=== PATIENT | female | born 1935 | race Caucasian/White ===

== ENCOUNTER 2017-05-20 07:19 | Inpatient (IN) | payer MEDICARE, OTHER ==
--- NOTE | 2017-05-20 08:21 | RAD ---
PORTABLE CHEST ONE VIEW: 05/20/2017 7:59 a.m. HISTORY: Altered mental status. Hypertension. FINDINGS: The heart is enlarged. The lungs are well expanded without confluent areas of consolidation, pneumot horax, domonique pulmonary edema, or pleural effusions. There are degenerative changes in the spine. IMPRESSION: Cardiomegaly. POS: EZE
[2017-05-20 08:48] LABS: #Eosinphils 0.1 thou/uL (0.0-0.7); #Lymphocytes 1.1 thou/uL (1.20-3.40); #Monocytes 0.6 thou/uL (0.11-0.59); %Basophils 0.1 % (0.0-1.0); %Eosinophils 1.3 % (0.0-10.0); %Lymphocytes 11.3 % (21.0-51.0); %Monocytes 6.4 % (0.0-10.0); Hemoglobin 14.8 g/dL (12.0-16.0); Mean Corpuscular HGB CONC 33.8 g/dL (32.0-36.0); Mean Corpuscular Hemoglobin 33.3 pg (27.0-31.0); Mean Corpuscular Volume 98.3 fl (81.0-99.0); Mean Platelet Volume 7.3 fL (7.4-10.4); Platelet Count 294 thou/uL (130-400); RBC Distribution Width 11.9 % (11.5-14.5); Red Blood Cell (RBC) Count 4.46 mill/uL (4.20-5.40); White Blood Cell (WBC) Count 9.9 thou/uL (4.8-10.8)
[2017-05-20 09:10] LABS: Troponin I 0.032 ng/mL (< 0.028)
[2017-05-20 09:13] LABS: CKMB 7.6 ng/mL (0-6.6)
[2017-05-20] MEDS ORDERED: Metoprolol Tartrate 5 MG/5 ML VIAL ONE (09:25)
[2017-05-20] MEDS ORDERED: Metoprolol Tartrate 25 MG TAB ONE (09:25)
[2017-05-20 11:33] LABS: Albumin 3.8 g/dL (3.4-4.8)
[2017-05-20 11:34] LABS: Chloride 95 mmol/L (98-107); Sodium 140 mmol/L (136-145)
[2017-05-20 11:35] LABS: Calcium 8.9 mg/dL (7.8-10.44); Glucose 116 mg/dL (83-110)
[2017-05-20 11:36] LABS: Protein, Total 6.8 g/dL (6.0-8.3)
[2017-05-20 11:37] LABS: Anion Gap 17 mmol/L (10-20); Bilirubin, Total 1.8 mg/dL (0.2-1.2); Carbon Dioxide 31 mmol/L (23-31)
[2017-05-20 11:38] LABS: Alkaline Phosphatase 69 U/L (40-150)
[2017-05-20 11:39] LABS: BUN (Urea Nitrogen) 13 mg/dL (9.8-20.1); Calc. Creatinine Clearance 0 mL/min (70-130); Estimated GFR-MDRD 71; Potassium 2.8 mmol/L (3.5-5.1)
[2017-05-20 11:40] LABS: AST (SGOT) 18 U/L (5-34)
[2017-05-20 11:41] LABS: ALT (SGPT) Less than 7 U/L (8-55); CK (CPK) 493 U/L (29-168); Lipase 6 U/L (8-78)
[2017-05-20] MEDS ORDERED: Diltiazem HCl 125 MG, Admixture Fee 1 EACH in Sodium Chloride 0.9% 100 ML IVPB ONE (11:45)
[2017-05-20] MEDS ORDERED: D5 1/2 NS w/20 mEq KCL 1,000 ML IV SCH (13:15)
[2017-05-20 14:10] LABS: Troponin I 0.021 ng/mL (< 0.028)
[2017-05-20] MEDS ORDERED: Haloperidol Lactate 5 MG/ML VIAL ONE (16:04)
[2017-05-20 17:13] LABS: Troponin I 0.027 ng/mL (< 0.028)
[2017-05-20] MEDS ORDERED: Ondansetron HCl/PF 4 MG/2 ML Vial IVP PRN ×2 (18:35→18:39)
[2017-05-20] MEDS ORDERED: Ondansetron ODT 4 MG TAB SL PRN (18:35)
[2017-05-20] MEDS ORDERED: Ondansetron ODT 4 MG TAB PO PRN (18:39)
[2017-05-20] MEDS ORDERED: Bisacodyl 10 MG SUPP PR PRN (18:39)
[2017-05-20] MEDS ORDERED: Bisacodyl 5 MG TAB PO PRN (18:39)
[2017-05-20 18:43] VITALS: BMI 28.0
[2017-05-20] MEDS ORDERED: Potassium Chloride 20 MEQ TAB PO SCH (19:00)
[2017-05-20] MEDS: Haloperidol Lactate 5 MG/ML VIAL SLOW IVP PRN (21:29)
[2017-05-20] MEDS: Apixaban 5 MG TAB PO SCH (22:08)
[2017-05-20] MEDS: Famotidine 20 MG TAB PO SCH (22:08)
--- NOTE | 2017-05-20 23:38 | CON ---
DATE OF CONSULTATION: 05/20/2017 REASON FOR CONSULTATION: Atrial flutter. HISTORY OF PRESENT ILLNESS: Ms. Galvez is a very pleasant 81-year-old woman. She lives in [facility]. They have noted that she is more confused and disoriented recently, she was brought to the hospital and found to be in atrial flutter. Apparently, recently she was also told that she has atrial fibrillation, but those EKGs are not available to me to know if there is atrial fibrillation o r flutter, but clearly it is atrial flutter on this admission. The patient denies chest pain, pressu re, heaviness or squeezing, otherwise has been doing well. No previous cardiac history otherwise. A lso, the family notes decreased mobility and overall seem to be going downhill to some degree, but st ill functional. The patient does have dementia, but the dementia is also worse in the last few days. The patient is pleasant and cooperative today. MEDICATIONS: The patient is on intravenous diltiazem here, she has been started on apixaban as well as metoprolol. The patient is also on intravenous diltiazem. ALLERGIES: ACETAMINOPHEN, CODEINE, ERYTHROMYCIN and HYDROCODONE. REVIEW OF SYSTEMS: Constitutional: Positive for weakness and fatigue. Vision: No changes. Hearin g: No changes. Pulmonary: No cough or wheezing. Gastrointestinal: No nausea, vomiting, or diarrh ea. Cardiac: No chest pain or pressure. Neurologic: No unilateral weakness or numbness. Psychiat georgina: No unusual depression or anxiety. Hematologic: No unusual bruising. Genitourinary: No burni ng with urination. Musculoskeletal: No unusual joint pains. PHYSICAL EXAMINATION: GENERAL: This is a pleasant elderly woman, in no distress. VITAL SIGNS: Blood pressure 117/56, pulse 80 and it is regular. EYES: Sclerae nonicteric. MOUTH: Mucous membranes moist. NECK: Supple, no lymphadenopathy. LUNGS: Clear, no wheezing, rales or rhonchi. CARDIOVASCULAR: Normal S1, normal S2. There is no murmur, rub or gallop. ABDOMEN: Soft, nontender. EXTREMITIES: No clubbing or cyanosis. There is no edema. LABORATORY DATA AND IMAGING: Potassium was 2.8. Troponin 0.32. EKG reveals atrial flutter. Echoca rdiogram is pending. ASSESSMENT: Recently diagnosed atrial flutter, difficult to control rate as it is usually the case. PLAN: 1. Echocardiogram is pending. 2. Recommend atrial flutter ablation. In anticipation of this, we will hold apixaban after Monday's dose and keep her n.p.o. Monday for hopefully she is going to have an atrial flutter ablati on on Monday.
--- NOTE | 2017-05-21 00:19 | HP ---
PRIMARY CARE PHYSICIAN: Dr. Moulton. CHIEF COMPLAINT: Altered mental status. HISTORY OF PRESENT ILLNESS: This is a 81-year-old white female who lives in assisted living with pro gressive dementia over the last year since her . She is cared for by her 2 daughters, wh o are present in the room. The patient does not have any complaints. The daughters report that over the last year since her , she has had decreased orientation, does not know where she is. She recognizes her 2 daughters, but gets her names confused sometimes, and has had a slowly decreas ing physical ability as well, so that now she needs assistance to go to the restroom, but then over t he last 2-3 weeks, she has had decreasing ability to follow commands, will say that she is lift ing her foot up for them to help her change her clothes and when she has not actually doing it, actin g a little more agitated than normal. She was seen by Dr. Moulton in his office about a couple we eks ago and was noted to have atrial fibrillation at that time, was put on a low dose metoprolol and started on Eliquis. Today, the patient seemed more altered than normal, so she was brought to the em ergency room. In the ER, she was found to be in atrial flutter with rapid ventricular rate in the 14 0s to 150s. This did not improve with IV metoprolol, so she was started to diltiazem drip which brou ght the rate down to 100. The patient was a little bit agitated and pulling out IVs in the emergency room. I gave her one dose of 1 mg of Haldol and that calmed her down without making her sedated. PAST MEDICAL HISTORY: 1. Progressive dementia, unknown type. 2. Hypertension, noted on blood pressures at the assisted living facility over the last couple of mo nths and none before that. 3. Gout. PAST SURGICAL HISTORY: None. SOCIAL HISTORY: The patient is . Lives in assisted living, two daughters are her medical pow er of trade mark attorney. FAMILY HISTORY: None. ALLERGIES: CODEINE. CURRENT MEDICATIONS: 1. Zoloft 25 mg daily. 2. Folic acid 1 mg daily. 3. Imodium 2 mg each morning. 4. Eliquis 5 mg daily. 5. Toprol-XL 25 mg daily. 6. Allopurinol 100 mg daily. REVIEW OF SYSTEMS: Unable to obtain secondary to patient's altered mental status. Per the sister's knowledge, she has only had the altered mental status. No known fevers or infectious symptoms. She has regular diarrhea, which is now controlled with Imodium daily. Nothing else that they are aware o f. The patient denies any complaints at all. PHYSICAL EXAMINATION: VITAL SIGNS: Blood pressure 132/76, pulse 77 on the drip, respirations 18, O2 sat 97% on room air, t emperature 97.5. GENERAL: This is a well-developed, well-nourished, white female who appears pleasant and calm on the bed, but is oriented only to self. HEENT: Pupils equal, round, and reactive to light. Oropharynx clear without lesions, erythema or ex udate. NECK: Supple. No lymphadenopathy. No thyroid nodules. No enlargement. HEART: Irregularly irregular rhythm. Normal rate currently. No murmurs, rubs or gallops. LUNGS: Clear to auscultation bilaterally. No wheezes, crackles or rhonchi. ABDOMEN: Soft, nontender to palpation, normoactive bowel sounds. No hepatosplenomegaly or other mas ses. EXTREMITIES: No clubbing or cyanosis. She does have trace pretibial edema. Daughters report this i s actually better than when they saw Dr. Moulton couple of weeks ago. SKIN: No rashes or other lesions noted. NEUROLOGIC: No facial droop. She does have deep tendon reflexes 2+ in all extremities and able to m ove all extremities with good strength. PSYCHIATRIC: Alert and oriented x1. LABORATORY DATA: CBC within normal limits. Complete metabolic panel was notable for potassium of 2. 8, chloride 95, glucose of 116, total bilirubin of 1.8. Creatinine kinase of 493. Her CK-MB was kishan vated at 7.6, troponin I was 0.032 with negative repeat troponins. TSH was normal. Chest x-ray: I did review the chest x-ray done in the emergency room along with the radiologist's report, this does show cardiomegaly, but no pulmonary edema or evidence of consolidation or pneumonia. EKG in the [facility] room shows atrial flutter, 118 beats per minute with left axis deviation and some Q-waves in V1 and V2. Repeat EKG done after diltiazem drip shows continued atrial flutter with a decreased rate o f 77. ASSESSMENT AND PLAN: 1. Atrial flutter with rapid ventricular rate, improved with diltiazem drip, continue drip and have Cardiology evaluate likely just need oral diltiazem for control. We will leave decision on further i ntervention to the box spring upholsterer. I will go ahead and get an echocardiogram with cardiomegaly on the chest x-ray and the trace lower extremity edema. 2. High blood pressure without a diagnosis of hypertension and this should be easily controlled with this rate control medications like Cardizem. We will keep an eye on her blood pressures in the hosp ital. 3. Dementia rapidly progressive likely the source of her altered mental status, though the atrial fl utter may be worsening thing. We would like to see if her mentation improves a little bit with contr ol of her rapid rate. 4. History of gout. We will put the patient back on allopurinol. 5. Hypokalemia. The patient got some IV potassium in the emergency room. We will also give her a s marianne dose of oral and then recheck in the morning. 6. Gastrointestinal prophylaxis. Put the patient on Pepcid twice a day. 7. History of diarrhea at home. We will continue the patient's Imodium. CODE STATUS: I did discuss this with the patient's daughters, they stated that she would want to be a DNR, would not want any aggressive interventions if she has something terminally cancer.
[2017-05-21 05:23] LABS: #Basophils 0.1 thou/uL (0.0-0.2); #Eosinphils 0.3 thou/uL (0.0-0.7); #Lymphocytes 1.8 thou/uL (1.20-3.40); #Monocytes 0.8 thou/uL (0.11-0.59); #Neutrophils 6.6 thou/uL (1.40-6.50); %Basophils 0.6 % (0.0-1.0); %Eosinophils 3.2 % (0.0-10.0); %Lymphocytes 19.1 % (21.0-51.0); %Monocytes 7.9 % (0.0-10.0); %Neutrophils 69.2 % (42.0-75.0); Hemoglobin 14.4 g/dL (12.0-16.0); Mean Corpuscular HGB CONC 33.3 g/dL (32.0-36.0); Mean Corpuscular Hemoglobin 33.1 pg (27.0-31.0); Mean Corpuscular Volume 99.3 fl (81.0-99.0); Platelet Count 294 thou/uL (130-400); RBC Distribution Width 12.1 % (11.5-14.5); Red Blood Cell (RBC) Count 4.35 mill/uL (4.20-5.40); White Blood Cell (WBC) Count 9.5 thou/uL (4.8-10.8)
[2017-05-21 05:40] LABS: Anion Gap 14 mmol/L (10-20); BUN (Urea Nitrogen) 16 mg/dL (9.8-20.1); Calc. Creatinine Clearance 58 mL/min (70-130); Calcium 8.5 mg/dL (7.8-10.44); Carbon Dioxide 28 mmol/L (23-31); Chloride 98 mmol/L (98-107); Estimated GFR-MDRD 71; Glucose 116 mg/dL (83-110); Potassium 3.3 mmol/L (3.5-5.1); Sodium 137 mmol/L (136-145)
--- NOTE | 2017-05-21 07:13 | PDOC.PN ---
- Subjective Encounter Start Date: 05/21/17 Encounter Start Time: 07:11 Subjective: seen and examined -presented with Afib on - Objective Resuscitation Status: Resuscitation Status DNR:Do Not Resuscitate Vital Signs & Weight: Vital Signs (12 hours) Temp Pulse Resp BP Pulse Ox 05/21/17 04:00 98.2 F 77 18 152/67 H 92 L Weight Weight 138 lb 14.259 oz I&O: 05/20/17 05/21/17 05/22/17 06:59 06:59 06:59 Intake Total 300 Balance 300 Result Diagrams: 05/21/17 04:58 05/21/17 04:58 Phys Exam - Physical Examination Constitutional: NAD HEENT: PERRLA, moist MMs, sclera anicteric, TM's clear Neck: no nodes, no JVD, supple, full ROM Respiratory: no wheezing, no rales, no rhonchi, clear to auscultation bilateral Cardiovascular: no significant murmur, no rub, irregular Gastrointestinal: soft, non-tender, no distention, positive bowel sounds Musculoskeletal: no edema, pulses present Dx/Plan (1) Afib Code(s): I48.91 - UNSPECIFIED ATRIAL FIBRILLATION Status: Acute (2) Hypokalemia Code(s): E87.6 - HYPOKALEMIA Status: Acute (3) Dementia Code(s): F03.90 - UNSPECIFIED DEMENTIA WITHOUT BEHAVIORAL DISTURBANCE Status: Acute (4) Gout Code(s): M10.9 - GOUT, UNSPECIFIED Status: Acute - Plan plan discussed w/ family, PT/OT, social research assistant On -: Possible ablation on Monday per cardiology -: Will hold anticoagulant -monday morning -re-ablation monday * .
[2017-05-21] MEDS ORDERED: Potassium Chloride 20 MEQ TAB PO SCH (08:00)
[2017-05-21] MEDS ORDERED: Enoxaparin Sodium 40 MG/0.4 ML SYRINGE SC SCH (09:00)
[2017-05-21] MEDS ORDERED: Prevnar 13-Val Conj/PF 0.5 ML SYRINGE IM ONE (09:00)
[2017-05-21] MEDS ORDERED: FLU VACC TS2017-18 (>65YR) 0.5 ML SYRINGE IM ONE (09:00)
[2017-05-21] MEDS: Famotidine 20 MG TAB PO SCH ×2 (09:29→20:48)
[2017-05-21] MEDS: Apixaban 5 MG TAB PO SCH ×3 (09:29→20:48)
[2017-05-21] MEDS: Allopurinol 100 MG TAB PO SCH (09:29)
[2017-05-21] MEDS: Haloperidol Lactate 5 MG/ML VIAL SLOW IVP PRN ×2 (11:45→18:00)
[2017-05-21] MEDS: Diltiazem 125 MG in Sodium Chloride 0.9% 100 ML IVPB SCH (13:33)
--- NOTE | 2017-05-21 14:13 | PDOC.CTH ---
<Torie Zafar - Last Filed: 05/21/17 14:06> Cardiology Progress Note - Subjective the pt seen and examined. No overnight events or no cardiac complaints per daughters' report. - Objective Vital Signs Temp Pulse Resp BP BP Pulse Ox 05/21/17 09:05 97.6 F 77 16 148/68 H 92 L 05/21/17 04:00 98.2 F 77 18 152/67 H 92 L Weight 138 lb 14.259 oz 05/20/17 05/21/17 05/22/17 06:59 06:59 06:59 Intake Total 300 Balance 300 - Physical Examination General/Neuro: other: (confused) Neck: no JVD present Lungs: CTA Heart: other: (irregular) Abdomen: soft - Telemetry Telemetry Rhythm: aflutter 80s - Labs Result Diagrams: 05/21/17 04:58 05/21/17 04:58 Troponin/CKMB CK-MB (CK-2) 7.6 ng/mL (0-6.6) H* 05/20/17 08:26 Troponin I 0.027 ng/mL (< 0.028) 05/20/17 16:27 - Assessment/Plan 1. AFlutter with RVR - Stable with Diltiazem drip; cont. monitor on tele; Possible AFlutter Ablation on 05/23/17? Cont. Eliquis for Ablation 2. HTN - reasonably stable with current medication; cont. monitor 3. Hypokalemia - KCl supplement was given today; managed by PCP 4. Dementia - MAR reviewed Review of Systems - Review of Systems Constitutional: reports: weakness EENTM: reports: no symptoms reported Respiratory: reports: no symptoms reported Cardiac (ROS): reports: no symptoms reported ABD/GI: reports: no symptoms reported : reports: no symptoms reported Musculoskeletal: reports: no symptoms reported <Josiane Varner - Last Filed: 05/21/17 19:42> Cardiology Progress Note - Objective Vital Signs Temp Pulse Resp BP Pulse Ox 05/21/17 15:30 98.2 F 79 14 159/97 H 96 05/21/17 09:05 97.6 F 77 16 148/68 H 92 L Weight 138 lb 14.259 oz 05/20/17 05/21/17 05/22/17 06:59 06:59 06:59 Intake Total 300 720 Balance 300 720 - Labs Result Diagrams: 05/21/17 04:58 05/21/17 04:58 Troponin/CKMB CK-MB (CK-2) 7.6 ng/mL (0-6.6) H* 05/20/17 08:26 Troponin I 0.027 ng/mL (< 0.028) 05/20/17 16:27 - Assessment/Plan Pt. seen and eval. by me. I agree with the A/P by the CHECKOUT SUPERVISOR. Pt. was agitated and confused earlier today but is more sedate at this time. Plan for ablation on Monday.
--- NOTE | 2017-05-22 08:05 | PDOC.PN ---
- Subjective Encounter Start Date: 05/22/17 Encounter Start Time: 08:30 Subjective: Patient without complaints. Had some redness at old IV site on right hand -: improving. Awaiting ablation. Agitation well controlled with Haldol. - Objective Resuscitation Status: Resuscitation Status DNR:Do Not Resuscitate MAR Reviewed: Yes Vital Signs & Weight: Vital Signs (12 hours) Pulse Resp BP Pulse Ox 05/22/17 05:30 94 L 05/22/17 04:00 80 18 134/76 Weight Weight 138 lb 14.259 oz I&O: 05/21/17 05/22/17 05/23/17 06:59 06:59 06:59 Intake Total 300 720 Balance 300 720 Result Diagrams: 05/21/17 04:58 05/21/17 04:58 Phys Exam - Physical Examination Constitutional: NAD HEENT: moist MMs Respiratory: no wheezing, no rales, no rhonchi Cardiovascular: no significant murmur, irregular Gastrointestinal: soft, positive bowel sounds Neurological: non-focal, moves all 4 limbs Deviation from normal: oriented to person only Dx/Plan (1) Atrial flutter with rapid ventricular response Code(s): I48.92 - UNSPECIFIED ATRIAL FLUTTER Status: Acute Comment: plan for ablation tomorrow per cardiology, holding Eliquis after this morning (2) Hypokalemia Code(s): E87.6 - HYPOKALEMIA Status: Acute Comment: improved, will add low dose daily potassium (3) Dementia Code(s): F03.90 - UNSPECIFIED DEMENTIA WITHOUT BEHAVIORAL DISTURBANCE Status: Chronic Qualifiers: Dementia behavioral disturbance: with behavioral disturbance Comment: progressive, giving Haldol as needed for agitation (4) Gout Code(s): M10.9 - GOUT, UNSPECIFIED Status: Chronic - Plan cont current plan of care, PT/OT, DVT proph w/SCDs * . - Discharge Day Encounter end time: 09:00
[2017-05-22] MEDS ORDERED: Potassium Chloride 20 MEQ TAB PO SCH (08:15)
[2017-05-22] MEDS: Famotidine 20 MG TAB PO SCH ×2 (09:43→20:35)
[2017-05-22] MEDS: Allopurinol 100 MG TAB PO SCH (09:43)
[2017-05-22] MEDS: Apixaban 5 MG TAB PO SCH (09:51)
[2017-05-22] MEDS: Haloperidol Lactate 5 MG/ML VIAL SLOW IVP PRN ×2 (09:51→20:41)
--- NOTE | 2017-05-22 11:43 | PDOC.CTH ---
<Torie Zafar - Last Filed: 05/22/17 11:41> Cardiology Progress Note - Subjective The pt seen and examined. No overnight events. No cardiac complaints. Her cognition status is stable today. She expressed she does not want to have any procedures - Objective Vital Signs Temp Pulse Resp BP Pulse Ox 05/22/17 08:00 97.9 F 84 18 92 L 05/22/17 07:50 97.9 F 84 18 138/81 92 L 05/22/17 05:30 94 L 05/22/17 04:00 80 18 134/76 Weight 138 lb 14.259 oz 05/21/17 05/22/17 05/23/17 06:59 06:59 06:59 Intake Total 300 720 Balance 300 720 - Physical Examination General/Neuro: other: (confused) Neck: no JVD present Lungs: CTA Heart: other: (Irregular) Abdomen: soft Extremities: other: (No edema) - Telemetry Telemetry Rhythm: Aflutter 80s - Labs Result Diagrams: 05/21/17 04:58 05/21/17 04:58 Troponin/CKMB CK-MB (CK-2) 7.6 ng/mL (0-6.6) H* 05/20/17 08:26 Troponin I 0.027 ng/mL (< 0.028) 05/20/17 16:27 - Assessment/Plan 1. AFlutter with RVR - Stable with Diltiazem drip; cont. monitor on tele; Possible AFlutter Ablation on 05/23/17? Cont. Eliquis for Ablation 2. HTN - reasonably stable with current medication; cont. monitor 3. Hypokalemia - K level has improved today; another KCl supplement was given today; managed by PCP 4. Dementia - stable MAR reviewed Review of Systems - Review of Systems Constitutional: reports: no symptoms reported EENTM: reports: no symptoms reported Respiratory: reports: no symptoms reported Cardiac (ROS): reports: no symptoms reported ABD/GI: reports: no symptoms reported : reports: no symptoms reported <Josiane Varner - Last Filed: 05/22/17 17:47> Cardiology Progress Note - Objective Vital Signs Temp Pulse Resp BP BP Pulse Ox 05/22/17 15:10 98.3 F 79 26 H 179/92 H 90 L 05/22/17 11:30 98.2 F 81 20 142/65 H 91 L 05/22/17 08:00 97.9 F 84 18 92 L 05/22/17 07:50 97.9 F 84 18 138/81 92 L Weight 138 lb 14.259 oz 05/21/17 05/22/17 05/23/17 06:59 06:59 06:59 Intake Total 300 720 980 Output Total 3 Balance 300 720 977 - Labs Result Diagrams: 05/21/17 04:58 05/21/17 04:58 Troponin/CKMB CK-MB (CK-2) 7.6 ng/mL (0-6.6) H* 05/20/17 08:26 Troponin I 0.027 ng/mL (< 0.028) 05/20/17 16:27 - Assessment/Plan Pt. seen and evaluated by me. I agree with the A/P by the HEAD WAITER.
[2017-05-22] MEDS: Diltiazem 125 MG in Sodium Chloride 0.9% 100 ML IVPB SCH (17:39)
--- NOTE | 2017-05-23 13:32 | PDOC.PN ---
- Subjective Encounter Start Date: 05/23/17 Encounter Start Time: 16:00 Subjective: Patient down for ablation - Objective Resuscitation Status: Resuscitation Status DNR:Do Not Resuscitate MAR Reviewed: Yes Vital Signs & Weight: Vital Signs (12 hours) Temp Pulse Resp BP BP Pulse Ox 05/23/17 12:34 91 18 141/67 H 90 L 05/23/17 08:00 97.6 F 102 H 16 93 L 05/23/17 07:33 97.6 F 102 H 16 133/69 93 L 05/23/17 03:05 97.5 F L 93 21 H 165/67 H 165/67 H 93 L Weight Weight 148 lb 9.465 oz I&O: 05/22/17 05/23/17 05/24/17 06:59 06:59 06:59 Intake Total 720 1170 Output Total 3 Balance 720 1167 Result Diagrams: 05/21/17 04:58 05/23/17 14:59 Dx/Plan (1) Atrial flutter with rapid ventricular response Code(s): I48.92 - UNSPECIFIED ATRIAL FLUTTER Status: Acute Comment: plan for ablation tomorrow per cardiology, holding Eliquis after this morning (2) Hypokalemia Code(s): E87.6 - HYPOKALEMIA Status: Acute Comment: improved, will add low dose daily potassium (3) Dementia Code(s): F03.90 - UNSPECIFIED DEMENTIA WITHOUT BEHAVIORAL DISTURBANCE Status: Chronic Qualifiers: Dementia behavioral disturbance: with behavioral disturbance Comment: progressive, giving Haldol as needed for agitation (4) Gout Code(s): M10.9 - GOUT, UNSPECIFIED Status: Chronic - Plan cont current plan of care, DVT proph w/SCDs Ablation today * . - Discharge Day Encounter end time: 16:30
--- NOTE | 2017-05-23 13:54 | PDOC.CTH ---
Cardiology Progress Note - Subjective no new issues or concerns. Family at bedside several questions were answered. - Objective Vital Signs Temp Pulse Resp BP BP Pulse Ox 05/23/17 12:34 91 18 141/67 H 90 L 05/23/17 08:00 97.6 F 102 H 16 93 L 05/23/17 07:33 97.6 F 102 H 16 133/69 93 L 05/23/17 03:05 97.5 F L 93 21 H 165/67 H 165/67 H 93 L Weight 148 lb 9.465 oz 05/22/17 05/23/17 05/24/17 06:59 06:59 06:59 Intake Total 720 1170 Output Total 3 Balance 720 1167 - Physical Examination General/Neuro: alert & oriented x3, NAD Neck: no JVD present Lungs: CTA, unlabored respirations Heart: other: (Irregular) Abdomen: NT/ND Extremities: other: (no edema) - Telemetry Telemetry Rhythm: Afib - Labs Result Diagrams: 05/21/17 04:58 05/21/17 04:58 Troponin/CKMB CK-MB (CK-2) 7.6 ng/mL (0-6.6) H* 05/20/17 08:26 Troponin I 0.027 ng/mL (< 0.028) 05/20/17 16:27 - Assessment/Plan 1. AFlutter with RVR 2. HTN 3. Hypokalemia 4. Dementia PLAN: - EP evaluation for possible ablation. - Would start Eliquis/Xarelto for stroke prophylaxis. - Replace K
[2017-05-23] MEDS ORDERED: Potassium Chloride 20 MEQ TAB PO SCH (14:00)
[2017-05-23 15:32] LABS: Anion Gap 13 mmol/L (10-20); BUN (Urea Nitrogen) 22 mg/dL (9.8-20.1); Calc. Creatinine Clearance 61 mL/min (70-130); Calcium 9.1 mg/dL (7.8-10.44); Carbon Dioxide 29 mmol/L (23-31); Chloride 100 mmol/L (98-107); Estimated GFR-MDRD 70; Glucose 116 mg/dL (83-110); Potassium 3.9 mmol/L (3.5-5.1); Sodium 138 mmol/L (136-145)
[2017-05-23] MEDS ORDERED: Propofol 500 MG/50 ML VIAL ONE (15:48)
[2017-05-23] MEDS ORDERED: Diprivan 20 ML ONE (15:59)
[2017-05-23] MEDS ORDERED: Heparin 10,000 UNITS/1 ML VIAL ONE (16:48)
[2017-05-23] MEDS ORDERED: Propofol 200 MG/20 ML VIAL ONE (17:14)
[2017-05-23] MEDS ORDERED: DOPamine 400 MG/D5W 250 ML 250 ML ONE (18:07)
[2017-05-23] MEDS: Potassium Chloride 20 MEQ TAB PO SCH (19:43)
[2017-05-23] MEDS: Famotidine 20 MG TAB PO SCH ×2 (19:43→19:55)
[2017-05-23] MEDS: Allopurinol 100 MG TAB PO SCH (19:43)
[2017-05-23] MEDS: Haloperidol Lactate 5 MG/ML VIAL SLOW IVP PRN (19:56)
[2017-05-23] MEDS ORDERED: Diltiazem 125 MG in Sodium Chloride 0.9% 100 ML IVPB PRN (22:45)
[2017-05-23] MEDS ORDERED: Bisacodyl 10 MG SUPP PR PRN (23:17)
[2017-05-23] MEDS ORDERED: Ondansetron HCl/PF 4 MG/2 ML Vial IVP PRN (23:17)
[2017-05-23] MEDS ORDERED: Temazepam 15 MG CAP PO PRN (23:17)
[2017-05-23] MEDS ORDERED: Bisacodyl 5 MG TAB PO PRN (23:17)
[2017-05-23] MEDS ORDERED: Silver Sulfadiazine 1% Cream 50 GM JAR TOP PRN (23:17)
[2017-05-23] MEDS ORDERED: diphenhydrAMINE 25 MG CAP PO PRN (23:17)
[2017-05-23] MEDS ORDERED: Nitroglycerin 0.4 MG TAB (25 Tab Bottle) SL PRN (23:17)
[2017-05-23] MEDS ORDERED: Mag-Al 1200 mg/1200 mg/30 ML UDCUP PO PRN (23:17)
[2017-05-23] MEDS ORDERED: traMADol HCl 50 MG TAB PO PRN (23:17)
--- NOTE | 2017-05-24 01:12 | ECHO ---
DATE OF SERVICE: 05/23/2017 TRANSESOPHAGEAL ECHOCARDIOGRAPHY REPORT REFERRING PHYSICIAN: Dr. Reyes. Ms. Galvez is here for BARRY; hence, atrial flutter, which was just recently put on an oral anticoagulant rule out intracardiac clot prior to planned ablation procedure. PROCEDURE: The patient received propofol sedation by Anesthesia specialist. After adequate level of sedation achieved, the standard transesophageal echocardiogram probe was passed into esophagus witho ut difficulty. The patient tolerated the procedure well. No complications noted. RESULTS: The left atrium is upper limits of normal in size. Left appendage is well visualized conta ins no clots. ----- also well seen; 4/4 pulmonary veins were well noted with normal velocities and c onfiguration. The mitral valve with only mild regurgitation just central. The interatrial septum is free of defects. The left ventricular systolic function has preserved. Cavity size normal and wall thickness appears to be normal as well. Right-sided chamber is mildly dilated, mild TR noted with t ranstricuspid gradient was about 3.5 ----/per second, mildly elevated. No pericardial effusion seen, visualized portion of the ascending and descending aorta without aneurysm, dissection, or atheroma. CONCLUSION: 1. No intracardiac clots noted. 2. Mild MR and TR and mildly elevated right-sided pressures. 3. Normal left ventricular systolic function. PLAN: Proceed with ablation procedure. POS: EZE
[2017-05-24] MEDS: Haloperidol Lactate 5 MG/ML VIAL SLOW IVP PRN (02:28)
--- NOTE | 2017-05-24 06:38 | CCL ---
ELECTROPHYSIOLOGY STUDY AND RADIOFREQUENCY ABLATION REPORT REFERRING PHYSICIAN: Boyd Reyes M.D. REASON FOR PROCEDURE: Ms. Galvez is a 81-year-old woman with a history of newly found atrial arrhythmias. She underwent BARRY prior to this procedure demonstrating no intracardiac clots, normal LV function. Her EKG is suggestive of possible isthmus dependent flutter. PROCEDURE IN DETAIL: The patient received deep sedation by Anesthesia specialist. After adequate level of sedation achieved, the right femoral vein, this area was prepped, draped and anesthetized with ultrasound guidance, the right femoral veins were cannulated. An 8-German short sheath and a long pressure sheath was introduced. Through the fascia sheath, a duodeca catheter was advanced to the CS right atrial and right ventricular position. Following that, basic EP study was performed at baseline as the atrial flutter was seen with ventricular cycle length of 142. The atrial flutter cycle length was 190 milliseconds. Pacing maneuvers 3D mapping was performed using a [employer] SF ST catheter with which a right atrial map was obtained. Activation map was performed. Basal septal area was found to be early, but at this septal site the post-pacing interval was relatively delayed. Eventually, furhter pacing maneuver was produced atrial fibrillation, which was cardioverted. Following that, hence the typical appearing flutter and some EKGs, we proceeded with cavotricuspid isthmus ablation. The CS proximal pacing was utilized to demonstrate lengthening of the transisthmus conduction. Initial transisthmus conduction time was in the 40 milliseconds range which increased to 140 milliseconds. Isthmus block was demonstrated with 3D mapping as well as with the duodeca catheter with progressively lengthening transisthmus times moving lateral from the ablation line. Following that, dopamine administration was performed and under dopamine effect , the line was rechecked and the block was ascertained. CONCLUSION: 1. Multi-circuit atrial arrhythmias. 2. Status post cavotricuspid isthmus ablation. 3. Normal sinus richard function, 4. No inducible arrhtyhmia on dopamine. 4. Frequent left-sided PACs are noted post-ablation. POS: SHIMA YANELIS
--- NOTE | 2017-05-24 08:42 | PDOC.PN ---
- Subjective Encounter Start Date: 05/24/17 Encounter Start Time: 10:00 Subjective: Patient lying quitely in bed. A bit withdrawn today. Hasn't been willing to -: participate in PT. Daughter hoping once gets Zoloft will be more -: agreeable. - Objective Resuscitation Status: Resuscitation Status DNR:Do Not Resuscitate MAR Reviewed: Yes Vital Signs & Weight: Vital Signs (12 hours) Temp Pulse Resp BP Pulse Ox 05/24/17 02:24 98.1 F 100 20 166/84 H 91 L 05/24/17 00:09 90 L Weight Weight 154 lb 12.232 oz I&O: 05/23/17 05/24/17 05/25/17 06:59 06:59 06:59 Intake Total 1170 240 Output Total 3 Balance 1167 240 Result Diagrams: 05/24/17 09:19 05/24/17 09:19 Phys Exam - Physical Examination Constitutional: NAD HEENT: moist MMs Respiratory: no wheezing, no rales, no rhonchi Cardiovascular: RRR, no significant murmur Gastrointestinal: soft, positive bowel sounds Deviation from normal: flat affect, demented, oriented to person only Dx/Plan (1) Atrial flutter with rapid ventricular response Code(s): I48.92 - UNSPECIFIED ATRIAL FLUTTER Status: Acute Comment: Ablation yesterday, will restart Elliquis tonight (2) Hypokalemia Code(s): E87.6 - HYPOKALEMIA Status: Acute Comment: improved, will add low dose daily potassium (3) Dementia Code(s): F03.90 - UNSPECIFIED DEMENTIA WITHOUT BEHAVIORAL DISTURBANCE Status: Chronic Qualifiers: Dementia behavioral disturbance: with behavioral disturbance Comment: progressive, giving Haldol as needed for agitation (4) Gout Code(s): M10.9 - GOUT, UNSPECIFIED Status: Chronic - Plan cont current plan of care, PT/OT, DVT proph w/SCDs Will need placement, assisted living vs. SNF -: Informed daughter that patient must get up with PT if going to -: evaluate for SNF. * . - Discharge Day Encounter end time: 10:30
[2017-05-24] MEDS ORDERED: Apixaban 5 MG TAB PO SCH ×3 (09:00→18:00)
--- NOTE | 2017-05-24 09:17 | CON ---
DATE OF CONSULTATION: 05/23/2017 ELECTROPHYSIOLOGY CONSULTATION CONSULTING PHYSICIAN: Dr. Boyd Reyes. REASON FOR CONSULTATION: Atrial flutter. HISTORY OF PRESENT ILLNESS: Mrs. Galvez is a pleasantly confused 81-year-old woman with advanced dementia, who currently resides in an assisted living center. Of note, in April, she was seen and evaluated by her primary care provider who noticed an abnormality on EKG and sent to Cardiology. At that time , she was prescribed Eliquis and metoprolol. She was able to start metoprolol a few days later, but has only started the Eliquis since being admitted to the hospital. She is found to be in atrial flutter, but it is unclear whether it is typical or atypical with EKG interpretation alone. The patient denies any chest pain, pressure, palpitations, heart racing, lightheadedness, or weakness. She also denies any stroke or stroke-like symptoms including unilateral weakness, speech or vision changes or mentation changes. However, the patient does have advanced dementia and is a poor historian. Her family, two daughters , are present at bedside during evaluation and do report that they had noticed a significant decrease in activity and energy levels over the recent past. They do report that she has been recently more confused, but that today she seems to be at her baseline. She is currently on an IV diltiazem drip in addition to Eliquis and metoprolol. The patient was brought to the emergency room on 05/20/2017, at which point, she was found to be in atrial fibrillation with a ventricular rate in the 140-150 range. She was initially given IV metoprolol, which was ineffective. At which point, she was started on a diltiazem drip which succeeded in bringing her ventricular response rate down to the 100 range. At that time, the patient was confused and somewhat agitated and was given Haldol. ALLERGIES: ACETAMINOPHEN, CODEINE, ERYTHROMYCIN, HYDROCODONE, and IODINE. PAST MEDICAL HISTORY: 1. Progressive dementia, advanced. 2. Hypertension. 3. Gout. SURGICAL HISTORY: None. SOCIAL HISTORY: The patient is , lives in assisted living, has two daughters. FAMILY HISTORY: Mother had stroke in her 80s. Negative for early onset of coronary artery disease for the age of 55. HOME MEDICATIONS: Include Zoloft, folic acid, Imodium, Eliquis 5 mg daily, Toprol-XL 25 mg daily, and allopurinol. CURRENT MEDICATIONS: Include allopurinol, diltiazem drip currently at 5 mg an hour, Pepcid, metoprolol succinate 25 mg daily, Zoloft 25 mg daily, and the patient has been given Haldol as needed for agitation. LABORATORY DATA: Recent laboratory results, hematology from 05/21/2017: WBC of 9.5 hemoglobin 14.4, hematocrit 43.2, and platelet count is 294. Chemistry from that day sodium 137, potassium 3.3, chloride 98, carbon dioxide 28, BUN 16 , creatinine 0.78, estimated GFR is 71, AST is 18 and ALT is less than 7. Serial troponins starting on 05/20/2017 were 0.032 and have trended down. Chest x-ray performed on 05/20/2017 revealed an enlarged cardiac silhouette. There was no consolidation, pneumothorax, pleural effusions, or additional acute findings. There were some degenerative changes of the spine, but overall the impression revealed cardiomegaly. PHYSICAL EXAMINATION: VITAL SIGNS: Include temperature is 97.6 degrees Fahrenheit, pulse is 91, respirations are 18, oxygen saturation is 93%, blood pressure is 141/67. GENERAL: This is a pleasant, well-nourished, well-developed, slightly overweight female, in no acute distress. She is alert and oriented to self only. Her speech is clear and she is currently resting quietly and calmly on the bed. HEENT: Pupils are equal, round, and reactive to light. NECK: Supple without jugular venous distention. There is no thyromegaly or lymphadenopathy. Her sclerae are anicteric. Her mucous membranes are moist with adequate dentition. CARDIOVASCULAR: Heart rate is regular. There are no murmurs, rubs or gallops. EXTREMITIES: Lower extremities are warm and dry to touch without evidence of clubbing, cyanosis or edema. PULMONARY: Lungs clear to auscultation bilaterally without wheezes, crackles or rhonchi. There is good bilateral excursion. Respirations are even and unlabored. ABDOMEN: Soft and nontender to palpation. There is no distention, hepatosplenomegaly, or masses. Positive bowel tones. Hepatojugular reflex is positive. HEMATOLOGIC: The patient does not have extensive bruising or evidence for petechiae. There is no evidence of uncontrolled bleeding. NEUROLOGIC: There is no facial droop. The patient has good equal bilateral strength. She is confused and is only oriented to self. The patient is nonfocal and without deficit. PLAN: 1. Atrial flutter with rapid ventricular rate, currently well controlled on diltiazem drip and oral metoprolol. It was discussed at length with the family treatment options including medical management and ablation procedures with EP study. At this point, we are unable to pinpoint whether there is typical or atypical atrial flutter based on the EKGs available and without an EP study. Our recommendation would be to pursue EP study and CTI ablation if a right- sided typical atrial flutter is found. If found to be left-sided atypical flutter, we will pursue medical management at this time. The risks and benefits of EP study and CTI ablation were discussed with the family at length and the patient present. Risks include damage to femoral vein, surrounding tissues and nerves. Hematoma at venous access. Perforation of heart or lung required an additional chest tube placement either for pneumothorax or hemothorax. Additional risks include cardiac tamponade, arrhythmias requiring pacemaker placement and/or . Family and the patient acknowledges risks and wished to proceed with the procedure, as long as patient is able to be kept comfortable with sedation. All questions have been answered. 2. High blood pressure. 3. Advanced dementia. 4. Hypokalemia. The patient has electrolyte replacement ordered. At this point, we will pursue EP study with possible CTI ablation pending EP study results this afternoon. Family and the patient verbalized understanding of the risks and benefits of the procedure and wished to proceed. The patient is a DNR and the family wishes her to remain so, but understand the DNR will be rescinded for the duration of the procedure and until the patient has recovered from anesthesia. The family expressed that they do not wish to pursue left- sided ablation should she found to be in an atypical atrial flutter, but agreed to a right-sided CTI ablation today. We feel this is reasonable. We will pursue possible CTI ablation or medical management for atrial arrhythmias of alternate origin. This is a Linsey Alexander nurse practitioner acting as a scribe for Dr. Jun Hernandes. Thank you for allowing us to participate in the care of this patient. YANELIS
[2017-05-24 09:26] LABS: #Basophils 0.1 thou/uL (0.0-0.2); #Eosinphils 0.1 thou/uL (0.0-0.7); #Lymphocytes 0.7 thou/uL (1.20-3.40); #Monocytes 0.9 thou/uL (0.11-0.59); #Neutrophils 12.7 thou/uL (1.40-6.50); %Basophils 0.3 % (0.0-1.0); %Eosinophils 0.5 % (0.0-10.0); %Lymphocytes 4.7 % (21.0-51.0); %Neutrophils 88.5 % (42.0-75.0); Hemoglobin 14.9 g/dL (12.0-16.0); Mean Corpuscular HGB CONC 33.3 g/dL (32.0-36.0); Mean Corpuscular Hemoglobin 33.3 pg (27.0-31.0); Mean Platelet Volume 6.9 fL (7.4-10.4); Platelet Count 289 thou/uL (130-400); RBC Distribution Width 12.1 % (11.5-14.5); Red Blood Cell (RBC) Count 4.48 mill/uL (4.20-5.40); White Blood Cell (WBC) Count 14.3 thou/uL (4.8-10.8)
[2017-05-24 09:46] LABS: Anion Gap 15 mmol/L (10-20); BUN (Urea Nitrogen) 23 mg/dL (9.8-20.1); Calc. Creatinine Clearance 68 mL/min (70-130); Carbon Dioxide 24 mmol/L (23-31); Chloride 102 mmol/L (98-107); Estimated GFR-MDRD 76; Glucose 143 mg/dL (83-110); Potassium 3.9 mmol/L (3.5-5.1); Sodium 137 mmol/L (136-145)
[2017-05-24] MEDS: Potassium Chloride 20 MEQ TAB PO SCH (09:59)
[2017-05-24] MEDS: Allopurinol 100 MG TAB PO SCH (10:00)
[2017-05-24] MEDS: Dronedarone HCl 400 MG TAB PO SCH ×2 (10:00→16:53)
[2017-05-24] MEDS: Famotidine 20 MG TAB PO SCH ×2 (10:00→22:16)
--- NOTE | 2017-05-24 12:13 | PDOC.CTH ---
Cardiology Progress Note - Subjective She had her ablation yesterday and did well. - Objective Vital Signs Temp Pulse Resp BP BP Pulse Ox 05/24/17 08:55 98.6 F 101 H 18 188/91 H 91 L 05/24/17 02:24 98.1 F 100 20 166/84 H 91 L Weight 154 lb 12.232 oz 05/23/17 05/24/17 05/25/17 06:59 06:59 06:59 Intake Total 1170 240 Output Total 3 Balance 1167 240 - Physical Examination General/Neuro: alert & oriented x3, NAD Neck: no JVD present Lungs: CTA, unlabored respirations Heart: RRR Abdomen: NT/ND Extremities: other: (no edema.) - Telemetry Telemetry Rhythm: NSR - Labs Result Diagrams: 05/24/17 09:19 05/24/17 09:19 Troponin/CKMB CK-MB (CK-2) 7.6 ng/mL (0-6.6) H* 05/20/17 08:26 Troponin I 0.027 ng/mL (< 0.028) 05/20/17 16:27 - Assessment/Plan 1. AFlutter with RVR, s/p flutter ablation. 2. HTN 3. Hypokalemia 4. Dementia 5. Deconditioning. PLAN: - Eliquis for stroke prophylaxis. - Multaq at half dose, 200 mg BID as she has a high recurrence rate as she had several other focuses of SVT. - PT/OT. - From cardiac perspective she may be discharged at any time. - Will sign off. Please call with any questions. - Follow up with Dr. Reyes her primary Alarm Mechanism Adjuster in 4 - 6 weeks.
[2017-05-24] MEDS ORDERED: Amitriptyline HCl 25 MG TAB PO PRN (14:57)
--- NOTE | 2017-05-24 17:15 | PRG ---
DATE OF SERVICE: 05/24/2017 SUBJECTIVE: The patient is a doing well this am. . OBJECTIVE: VITAL SIGNS: Blood pressure 118/90, heart rate 101, respirations 18, temperature is 98.6 degrees Fahrenheit. GENERAL: woman. No apparent distress. NECK: Supple. Jugular veins not distended. LUNGS: Chest is coarse without crackles. CARDIOVASCULAR: Heart sounds are regular to rate and rhythm. No murmur or gallop. ABDOMEN: Benign. Bowel sounds are positive. EXTREMITIES: Lower extremities without edema, clubbing, or cyanosis. IMAGING DATA: right groin catheterization site is without reaction. EKG showed sinus rhythm. No atrial fibrillation with the ablation procedure. LABORATORY DATA: White count 17.3, hemoglobin 12.9, platelet count is 289. This morning, potassium 3.9. ASSESSMENT AND PLAN: Ms. Galvez is a pleasant 81-year-old woman who has underwent BARRY demonstrating no evidence of intracardiac clots and subsequent cavotricuspid isthmus ablation. She also is noted to have multiple Multaq- sensitive atrial arrhythmias. For this reason, I have initiated low dose Multaq for her. So far she is doing well, no complication from the procedure is noted. Her blood pressure remains elevated. Barring that, she likely is stable enough to be discharged from the EP standpoint. We will arrange EP follow-up. YANELIS
[2017-05-24] MEDS: Apixaban 5 MG TAB PO SCH (22:15)
--- NOTE | 2017-05-25 07:43 | PDOC.PN ---
- Subjective Encounter Start Date: 05/25/17 Encounter Start Time: 08:20 Subjective: Patient has been sedated and weaker over the past 24 hours. Seems less -: coordinated since ablation per daughter and not able to feed herself. -: Complaining of RUE pain previously, not this AM. - Objective Resuscitation Status: Resuscitation Status DNR:Do Not Resuscitate MAR Reviewed: Yes Vital Signs & Weight: Vital Signs (12 hours) Temp Pulse Resp BP Pulse Ox 05/25/17 04:00 99.2 F 103 H 22 H 178/94 H 93 L 05/24/17 20:00 98.8 F 96 18 171/92 H 92 L Weight Weight 154 lb 12.232 oz I&O: 05/24/17 05/25/17 05/26/17 06:59 06:59 06:59 Intake Total 240 Balance 240 Result Diagrams: 05/24/17 09:19 05/24/17 09:19 Phys Exam - Physical Examination Constitutional: NAD Sleepy, arousable, very slow movements HEENT: moist MMs Respiratory: no wheezing, no rales, no rhonchi Cardiovascular: no significant murmur, irregular Gastrointestinal: soft, positive bowel sounds Musculoskeletal: no edema not moving limbs much, holding right arm against body and resists movement some, but does allow me to check ROM without complaint of pain Deviation from normal: oriented to person, less alert than previously Deviation from normal: mild bruising and erythema on right wrist from old IV, doesn't look bad Dx/Plan (1) Atrial flutter with rapid ventricular response Code(s): I48.92 - UNSPECIFIED ATRIAL FLUTTER Status: Acute Comment: Ablation done, still with accessory pathways requiring Multac, Elliquis restarted, approved to d/c per cardiology (2) Hypokalemia Code(s): E87.6 - HYPOKALEMIA Status: Resolved Comment: improved, will add low dose daily potassium (3) Dementia Code(s): F03.90 - UNSPECIFIED DEMENTIA WITHOUT BEHAVIORAL DISTURBANCE Status: Chronic Qualifiers: Dementia behavioral disturbance: with behavioral disturbance Comment: progressive, d/c'd Haldol yesterday, none since early yest morning (4) Gout Code(s): M10.9 - GOUT, UNSPECIFIED Status: Chronic (5) Encephalopathy acute Code(s): G93.40 - ENCEPHALOPATHY, UNSPECIFIED Status: Acute Comment: Patient seems worse, not better, since ablation. No sedating meds yesterday. Only new med is Multaq which doesn't typically cause AMS or sedation. Will check CXR (still requiring oxygen), CT brain, blood work. Afebrile currently. - Plan cont current plan of care, PT/OT to SNF today if w/u negative. * .
[2017-05-25] MEDS: Apixaban 5 MG TAB PO SCH ×2 (08:53→22:46)
[2017-05-25] MEDS: Dronedarone HCl 400 MG TAB PO SCH ×2 (08:54→18:49)
[2017-05-25 09:00] LABS: #Basophils 0.1 thou/uL (0.0-0.2); #Eosinphils 0.1 thou/uL (0.0-0.7); #Lymphocytes 0.9 thou/uL (1.20-3.40); #Monocytes 0.9 thou/uL (0.11-0.59); #Neutrophils 13.3 thou/uL (1.40-6.50); %Basophils 0.4 % (0.0-1.0); %Eosinophils 0.4 % (0.0-10.0); %Neutrophils 87.2 % (42.0-75.0); Mean Corpuscular HGB CONC 33.4 g/dL (32.0-36.0); Mean Corpuscular Hemoglobin 33.3 pg (27.0-31.0); Mean Corpuscular Volume 99.8 fl (81.0-99.0); Mean Platelet Volume 7.1 fL (7.4-10.4); Platelet Count 286 thou/uL (130-400); RBC Distribution Width 12.2 % (11.5-14.5); Red Blood Cell (RBC) Count 4.19 mill/uL (4.20-5.40); White Blood Cell (WBC) Count 15.2 thou/uL (4.8-10.8)
--- NOTE | 2017-05-25 09:01 | RAD ---
CHEST ONE VIEW: History: Confusion, hypoxia. Comparison: 05-20-17 FINDINGS: There are right upper and right middle lobe airspace opacities. Heart size is enlarged. Mild ectasia of the thoracic aorta. No pneumothorax. IMPRESSION: Right upper and right middle lobe airspace opacities concerning for infection. POS: [facility]
[2017-05-25 09:21] LABS: Anion Gap 14 mmol/L (10-20); BUN (Urea Nitrogen) 23 mg/dL (9.8-20.1); Calc. Creatinine Clearance 67 mL/min (70-130); Calcium 9.2 mg/dL (7.8-10.44); Carbon Dioxide 24 mmol/L (23-31); Chloride 102 mmol/L (98-107); Estimated GFR-MDRD 75; Glucose 131 mg/dL (83-110); Potassium 4.1 mmol/L (3.5-5.1); Sodium 136 mmol/L (136-145)
--- NOTE | 2017-05-25 09:29 | PRG ---
DATE OF SERVICE: 05/25/2017 SUBJECTIVE: Ms. Galvez seems to be less responsive and with right upper arm pain and swelling this mor tania. No palpitations, dizziness or loss of consciousness noted, no other focalizing neurological signs. OBJECTIVE DATA: VITAL SIGNS: Blood pressure 178/94, heart rate 103, respirations 22, temperature 99.2 degrees Fahren heit. GENERAL: She is alert and oriented woman in no apparent distress. NECK: Supple. Jugular veins not distended. CHEST: Coarse, no crackles. CARDIOVASCULAR: Heart sounds are regular to rate and rhythm. No murmur or gallop. ABDOMEN: Benign. Bowel sounds positive. EXTREMITIES: Lower extremities without edema, clubbing or cyanosis. The right upper extremity with mild edema, now improving per daughter. NEURO: She is somewhat difficult to follow commands. No definite focalizing neurological signs thou gh appreciated. ASSESSMENT AND PLAN: 1. Atrial arrhythmias, status post cavotricuspid isthmus ablation, but also multifocal circuits are noted. For this she is on Multaq low dose. 2. Oral anticoagulation with Eliquis. 3. History of hyperkalemia, now resolved. 4. Dementia, chronic. 5. Mental status changes, check for CT brain. Haldol was discontinued yesterday.
--- NOTE | 2017-05-25 09:45 | CT ---
HEAD CT NONCONTRAST: COMPARISON: No prior comparison. INDICATION: Decreased responsiveness and coordination. FINDINGS: There is prominence of the ventricular system with periventricular white matter hypoattenuation. No intracranial hemorrhage, mass effect, or midline shift. Imaged paranasal sinuses are clear. No pneu mocephalus. IMPRESSION: Prominent ventricular system which is out of proportion to the size of the cerebral sulci. 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 Recommend followup with ne urologic consultation for further evaluation. POS: [facility]
[2017-05-25] MEDS: Famotidine 20 MG TAB PO SCH ×2 (12:07→22:46)
[2017-05-25] MEDS: Potassium Chloride 20 MEQ TAB PO SCH (12:07)
[2017-05-25] MEDS: Allopurinol 100 MG TAB PO SCH (12:07)
[2017-05-25] MEDS: Folic Acid 1 MG TAB PO SCH (12:33)
[2017-05-25] MEDS ORDERED: VANCOMYCIN IVPB PRN (13:25)
[2017-05-25] MEDS: Cefepime 2 GM, Syringe 2.5 ML in Sterile Water 10 ML SLOW IVP SCH (14:17)
[2017-05-25] MEDS: Vancomycin HCl 1.25 GM in Sodium Chloride 0.9% 250 ML 250 ML IVPB SCH (14:29)
[2017-05-25] MEDS ORDERED: Vancomycin HCl 1 GM in Premix Bag 1 BAG IVPB SCH (15:00)
[2017-05-25] MEDS ORDERED: hydrALAZINE 20 MG/ML VIAL SLOW IVP PRN (18:41)
[2017-05-25] MEDS ORDERED: cloNIDine 0.1 MG TAB PO PRN (18:41)
[2017-05-25] MEDS ORDERED: Cefepime 2 GM in Sodium Chloride 0.9% 100 ML IVPB SCH (21:00)
[2017-05-25] MEDS: Loperamide HCl 2 MG CAP PO PRN (22:46)
--- NOTE | 2017-05-25 22:50 | CON ---
DATE OF CONSULTATION: 05/25/2017 CONSULTING PHYSICIAN: Hospitalist Service IMPRESSION: 1. 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 She is not a good candidate for shunting. 2. Pneumonia which has exacerbated her situation. 3. Hypertension. PLAN: Comfort measures. Ms. Galvez is a 81-year-old woman who is living in assisted living under the assistance of her daughter . She reportedly has been very stubborn about ever seeing a physician. She had some shuffling gait for the last 3 years. She has become incontinent of bowel, but not urine. Over the recent past, her cognition is markedly deteriorated over the last year. She still recognizes her daughters, but ofte ntimes confuses them. She will not carry on conversations in a normal manner. She cannot operate re mote control or do other ordinary simple things around her bedroom. She physically deteriorated. Wayne herzog was brought to the hospital for evaluation. She has recently been diagnosed with pneumonia. Her h usband with Parkinson's disease. PAST MEDICAL HISTORY: Hypertension. FAMILY HISTORY: Noncontributory. ALLERGIES: As listed per chart. SOCIAL HISTORY: No tobacco or alcohol use. REVIEW OF SYSTEMS: Patient is without any complaints of pain, headache, nausea, dizziness. PHYSICAL EXAMINATION: GENERAL: She is a well-nourished elderly lady lying in bed in no distress. HEENT: Pupils equal and reactive. Conjunctivae clear. Oropharynx clear. EXTREMITIES: No cyanosis. NEUROLOGIC: She is awake and cooperative. Her speech is fluent and clear. She appeared relatively pleasant, in no distress. Her exam is nonfocal. I did not attempt to walk her at this point. EKG, sinus rhythm with atrial flutter, it is a dominant rhythm. LABORATORY STUDIES: Reviewed. Unremarkable CBC and serum chemistries. SUMMARY: In discussion with the daughter, given the severe level of dementia, at this point, there i s no point in considering an invasive procedure. They are comfortable with this plan.
[2017-05-26] MEDS: Cefepime 2 GM, Syringe 2.5 ML in Sterile Water 10 ML SLOW IVP SCH ×2 (02:39→14:20)
[2017-05-26 06:29] LABS: #Basophils 0.1 thou/uL (0.0-0.2); #Eosinphils 0.2 thou/uL (0.0-0.7); #Lymphocytes 1.3 thou/uL (1.20-3.40); #Monocytes 0.9 thou/uL (0.11-0.59); #Neutrophils 9.4 thou/uL (1.40-6.50); %Basophils 0.4 % (0.0-1.0); %Eosinophils 2.1 % (0.0-10.0); %Lymphocytes 10.6 % (21.0-51.0); %Monocytes 7.8 % (0.0-10.0); %Neutrophils 79.1 % (42.0-75.0); Hemoglobin 13.1 g/dL (12.0-16.0); Mean Corpuscular HGB CONC 32.9 g/dL (32.0-36.0); Mean Corpuscular Hemoglobin 33.2 pg (27.0-31.0); Mean Platelet Volume 7.8 fL (7.4-10.4); Platelet Count 281 thou/uL (130-400); RBC Distribution Width 12.2 % (11.5-14.5); Red Blood Cell (RBC) Count 3.96 mill/uL (4.20-5.40); White Blood Cell (WBC) Count 11.9 thou/uL (4.8-10.8)
[2017-05-26 06:52] LABS: Anion Gap 13 mmol/L (10-20); BUN (Urea Nitrogen) 28 mg/dL (9.8-20.1); Calc. Creatinine Clearance 68 mL/min (70-130); Calcium 9.1 mg/dL (7.8-10.44); Carbon Dioxide 23 mmol/L (23-31); Chloride 103 mmol/L (98-107); Estimated GFR-MDRD 75; Glucose 109 mg/dL (83-110); Potassium 4.3 mmol/L (3.5-5.1); Sodium 135 mmol/L (136-145)
--- NOTE | 2017-05-26 08:59 | PDOC.PN ---
- Subjective Encounter Start Date: 05/26/17 Encounter Start Time: 08:58 Subjective: Seen and examined no new complaint - Objective Resuscitation Status: Resuscitation Status DNR:Do Not Resuscitate Vital Signs & Weight: Vital Signs (12 hours) Temp Pulse Resp BP Pulse Ox 05/26/17 07:47 98.0 F 76 20 188/77 H 92 L 05/25/17 22:30 100 F H 88 18 150/79 H 92 L Weight Weight 156 lb 3.2 oz I&O: 05/25/17 05/26/17 05/27/17 06:59 06:59 06:59 Intake Total 850 Balance 850 Result Diagrams: 05/26/17 05:08 05/26/17 05:08 Phys Exam - Physical Examination Constitutional: NAD HEENT: PERRLA, moist MMs, sclera anicteric, TM's clear Neck: no nodes, no JVD, supple, full ROM Respiratory: no wheezing, no rales, no rhonchi, clear to auscultation bilateral Cardiovascular: RRR, no significant murmur, no rub Gastrointestinal: soft, non-tender, no distention, positive bowel sounds Musculoskeletal: no edema, pulses present Dx/Plan (1) Afib Code(s): I48.91 - UNSPECIFIED ATRIAL FIBRILLATION Status: Acute (2) Hypokalemia Code(s): E87.6 - HYPOKALEMIA Status: Resolved Comment: improved, will add low dose daily potassium (3) Dementia Code(s): F03.90 - UNSPECIFIED DEMENTIA WITHOUT BEHAVIORAL DISTURBANCE Status: Chronic Qualifiers: Dementia behavioral disturbance: with behavioral disturbance Comment: progressive, d/c'd Haldol yesterday, none since early yest morning (4) Gout Code(s): M10.9 - GOUT, UNSPECIFIED Status: Chronic - Plan plan discussed w/ family, PT/OT, public health social worker Transfer to Medical -: No shunt indicated per Neurology -: Awaiting SNF placement and family decision * .
[2017-05-26] MEDS: Dronedarone HCl 400 MG TAB PO SCH ×2 (09:46→17:34)
[2017-05-26] MEDS: Apixaban 5 MG TAB PO SCH ×2 (09:46→20:05)
[2017-05-26] MEDS: Allopurinol 100 MG TAB PO SCH (09:46)
[2017-05-26] MEDS: Potassium Chloride 20 MEQ TAB PO SCH (09:47)
[2017-05-26] MEDS: Folic Acid 1 MG TAB PO SCH (09:47)
[2017-05-26] MEDS: Famotidine 20 MG TAB PO SCH ×2 (09:47→20:05)
--- NOTE | 2017-05-26 10:31 | PDOC.CTH ---
<Linsey Alexander - Last Filed: 05/26/17 11:05> Cardiology Progress Note - Subjective Patient was seen and examined. Daughter was bedside. Ms. Galvez is awake but minimally interactive at this time and remains very confused. Daughter reports no new cardiac or arrhythmia concerns. Denies passing out or any reports of palpitations from her mother. Reportedly, the patient remains weak and lethargic compared to earlier this week and has undergone imagine and neurology consultation. - ROS not able to obtain ROS (patient confused and not answering ROS questions today when examined) - Objective Vital Signs Temp Pulse Resp BP Pulse Ox 05/26/17 07:47 98.0 F 76 20 188/77 H 92 L 05/25/17 22:30 100 F H 88 18 150/79 H 92 L Weight 156 lb 3.2 oz 05/25/17 05/26/17 05/27/17 06:59 06:59 06:59 Intake Total 850 Balance 850 - Physical Examination General/Neuro: NAD, other: (A/O x person only. She appears to feel poorly.) Neck: no JVD present Lungs: unlabored respirations, other: (Left lung do CTA, diminished at base. Right lung do with crackles and significantly diminshed throughout.) Heart: PMI normal, RRR Abdomen: no HSM, NT/ND Extremities: other: (no edema) - Telemetry Telemetry Rhythm: sinus rhythm/ sinus tach - Labs Result Diagrams: 05/26/17 05:08 05/26/17 05:08 Troponin/CKMB - Assessment/Plan 1. Atrial arrhytmias- Successful CTI ablation on 05/24, no recurrence of typical flutter. Patient will continue on Eliquis for CVA prevention and Multaq for arrhythmia suppression as she was also found to have atypical flutter and A Fib during EPS earlier this week. Once acute illnesses are resolved, we may consider discontinuing Multaq but this will be further considered as an outpatient. 2. Sinus Tachycardia- Brief asymptomatic episodes. Rates up to 125. Patient on Toprol. 3. AMS- patient has not had any additional or new neurologic deficits present since yesterday. Patient is non-focal. She is more alert and interactive than yesterday. Continue Eliquis for CVA prevention. Signing off at this time. Thank you for allowing us to participate in the care of this patient. We will see her in clinic in 6 weeks. <Jun Hernandes - Last Filed: 05/26/17 11:51> Cardiology Progress Note - Objective Vital Signs Temp Pulse Resp BP Pulse Ox 05/26/17 07:47 98.0 F 76 20 188/77 H 92 L Weight 156 lb 3.2 oz 05/25/17 05/26/17 05/27/17 06:59 06:59 06:59 Intake Total 850 Balance 850 - Labs Result Diagrams: 05/26/17 05:08 05/26/17 05:08 Troponin/CKMB CK-MB (CK-2) 7.6 ng/mL (0-6.6) H* 05/20/17 08:26 Troponin I 0.027 ng/mL (< 0.028) 05/20/17 16:27 Attending Addendum - Attending Addendum I personally evaluated the patient and discussed the management with Ms Alexander. 1. Atrial arrhytmias- Successful CTI ablation on 05/24, no recurrence of typical flutter. Patient will continue on Eliquis for CVA prevention and Multaq for arrhythmia suppression as she was also found to have atypical flutter and A Fib during EPS earlier this week. Once acute illnesses are resolved, we may consider discontinuing Multaq but this will be further considered as an outpatient. 2. Post ablation Sinus Tachycardia- Brief asymptomatic episodes. Rates up to 125. Patient on Toprol. 3. AMS- now improving, pt approaching baseline. patient has not had any additional or new neurologic deficits present since yesterday. Patient is non- focal. She is more alert and interactive than yesterday. CT was negative for bleed. Continue Eliquis for CVA prevention. She is transfer for medical foor for furhter rehab. Signing off at this time. Call if furhter questions. Thank you for allowing us to participate in the care of this patient. We will see her in clinic in 6 weeks.
[2017-05-26] MEDS: Vancomycin HCl 1.25 GM in Sodium Chloride 0.9% 250 ML 250 ML IVPB SCH (14:20)
[2017-05-27] MEDS: Cefepime 2 GM, Syringe 2.5 ML in Sterile Water 10 ML SLOW IVP SCH ×2 (02:55→14:48)
[2017-05-27] MEDS: Dronedarone HCl 400 MG TAB PO SCH ×2 (08:35→15:09)
[2017-05-27] MEDS: Apixaban 5 MG TAB PO SCH ×2 (08:36→20:29)
[2017-05-27] MEDS: Famotidine 20 MG TAB PO SCH ×2 (08:37→20:28)
[2017-05-27] MEDS: Potassium Chloride 20 MEQ TAB PO SCH (08:37)
[2017-05-27] MEDS: Allopurinol 100 MG TAB PO SCH (08:38)
[2017-05-27] MEDS: Folic Acid 1 MG TAB PO SCH (08:38)
--- NOTE | 2017-05-27 11:38 | PDOC.PN ---
- Subjective Encounter Start Date: 05/27/17 Encounter Start Time: 11:33 Subjective: Seen and examined with no new complaint - Objective Resuscitation Status: Resuscitation Status DNR:Do Not Resuscitate Vital Signs & Weight: Vital Signs (12 hours) Temp Pulse Resp BP BP Pulse Ox 05/27/17 08:00 98.2 F 74 20 173/85 H 94 L 05/27/17 04:41 98.6 F 77 18 148/77 H 92 L Weight Weight 156 lb 3.2 oz I&O: 05/26/17 05/27/17 05/28/17 06:59 06:59 06:59 Intake Total 850 990 Balance 850 990 Result Diagrams: 05/26/17 05:08 05/26/17 05:08 Phys Exam - Physical Examination Constitutional: NAD HEENT: PERRLA, moist MMs, sclera anicteric, TM's clear, oral pharynx no lesions Neck: no nodes, no JVD, supple, full ROM Respiratory: no wheezing Cardiovascular: RRR, no rub Gastrointestinal: soft, non-tender, no distention, positive bowel sounds Musculoskeletal: no edema, pulses present Dx/Plan (1) Afib Code(s): I48.91 - UNSPECIFIED ATRIAL FIBRILLATION Status: Acute (2) Hypokalemia Code(s): E87.6 - HYPOKALEMIA Status: Resolved Comment: improved, will add low dose daily potassium (3) Dementia Code(s): F03.90 - UNSPECIFIED DEMENTIA WITHOUT BEHAVIORAL DISTURBANCE Status: Chronic Qualifiers: Dementia behavioral disturbance: with behavioral disturbance Comment: progressive, d/c'd Haldol yesterday, none since early yest morning (4) Gout Code(s): M10.9 - GOUT, UNSPECIFIED Status: Chronic - Plan plan discussed w/ family, PT/OT, social service worker, respiratory therapy Awaiting SNF placement * .
[2017-05-27] MEDS: Loperamide HCl 2 MG CAP PO PRN (13:39)
[2017-05-27 14:23] LABS: Vancomycin, Trough 8.7 ug/mL
[2017-05-27] MEDS: Vancomycin HCl 1 GM in Premix Bag 1 BAG IVPB SCH (14:48)
--- NOTE | 2017-05-27 18:46 | PDOC.PN ---
- Subjective Encounter Start Date: 05/27/17 Encounter Start Time: 18:44 Subjective: seen and examined no new complaint - Objective Resuscitation Status: Resuscitation Status DNR:Do Not Resuscitate Vital Signs & Weight: Vital Signs (12 hours) Temp Pulse Resp BP Pulse Ox 05/27/17 08:00 98.2 F 74 20 173/85 H 94 L Weight Weight 156 lb 3.2 oz I&O: 05/26/17 05/27/17 05/28/17 06:59 06:59 06:59 Intake Total 850 990 Balance 850 990 Result Diagrams: 05/26/17 05:08 05/26/17 05:08 Phys Exam - Physical Examination Constitutional: NAD HEENT: PERRLA, moist MMs, sclera anicteric, TM's clear Neck: no nodes, no JVD, supple, full ROM Respiratory: no wheezing, no rales, no rhonchi Cardiovascular: RRR, no significant murmur, no rub Gastrointestinal: soft, non-tender, no distention Dx/Plan (1) Afib Code(s): I48.91 - UNSPECIFIED ATRIAL FIBRILLATION Status: Acute (2) Hypokalemia Code(s): E87.6 - HYPOKALEMIA Status: Resolved Comment: improved, will add low dose daily potassium (3) Dementia Code(s): F03.90 - UNSPECIFIED DEMENTIA WITHOUT BEHAVIORAL DISTURBANCE Status: Chronic Qualifiers: Dementia behavioral disturbance: with behavioral disturbance Comment: progressive, d/c'd Haldol yesterday, none since early yest morning (4) Gout Code(s): M10.9 - GOUT, UNSPECIFIED Status: Chronic - Plan plan discussed w/ family, PT/OT, professor of social work Awaiting placement * .
[2017-05-28] MEDS: Cefepime 2 GM, Syringe 2.5 ML in Sterile Water 10 ML SLOW IVP SCH ×2 (03:15→15:14)
[2017-05-28] MEDS: Vancomycin HCl 1 GM in Premix Bag 1 BAG IVPB SCH ×2 (03:15→15:14)
[2017-05-28] MEDS: Folic Acid 1 MG TAB PO SCH (08:46)
[2017-05-28] MEDS: Loperamide HCl 2 MG CAP PO PRN (08:47)
[2017-05-28] MEDS: Apixaban 5 MG TAB PO SCH ×2 (08:49→20:14)
[2017-05-28] MEDS: Dronedarone HCl 400 MG TAB PO SCH ×3 (08:51→20:13)
[2017-05-28] MEDS: Potassium Chloride 20 MEQ TAB PO SCH (08:52)
[2017-05-28] MEDS: Allopurinol 100 MG TAB PO SCH (08:53)
[2017-05-28] MEDS: Famotidine 20 MG TAB PO SCH ×2 (08:55→20:14)
--- NOTE | 2017-05-28 09:33 | PDOC.PN ---
- Subjective Encounter Start Date: 05/28/17 Encounter Start Time: 09:31 Subjective: Seen and examined--no new complaint - Objective Resuscitation Status: Resuscitation Status DNR:Do Not Resuscitate Vital Signs & Weight: Vital Signs (12 hours) Temp Pulse Resp BP Pulse Ox 05/28/17 08:00 98.2 F 75 20 160/86 H 92 L 05/28/17 06:52 98.6 F 81 18 Weight Weight 156 lb 3.2 oz I&O: 05/27/17 05/28/17 05/29/17 06:59 06:59 06:59 Intake Total 990 460 Balance 990 460 Result Diagrams: 05/26/17 05:08 05/26/17 05:08 Phys Exam - Physical Examination Constitutional: NAD HEENT: PERRLA, moist MMs, sclera anicteric, TM's clear Neck: no nodes, no JVD, supple, full ROM Respiratory: no wheezing, no rales, no rhonchi, clear to auscultation bilateral Cardiovascular: RRR, no significant murmur, no rub Gastrointestinal: soft, non-tender, no distention, positive bowel sounds Musculoskeletal: no edema, pulses present Dx/Plan (1) Afib Code(s): I48.91 - UNSPECIFIED ATRIAL FIBRILLATION Status: Acute (2) Hypokalemia Code(s): E87.6 - HYPOKALEMIA Status: Resolved Comment: improved, will add low dose daily potassium (3) Dementia Code(s): F03.90 - UNSPECIFIED DEMENTIA WITHOUT BEHAVIORAL DISTURBANCE Status: Chronic Qualifiers: Dementia behavioral disturbance: with behavioral disturbance Comment: progressive, d/c'd Haldol yesterday, none since early yest morning (4) Gout Code(s): M10.9 - GOUT, UNSPECIFIED Status: Chronic - Plan plan discussed w/ family, PT/OT, pediatric social worker Awaiting placement * .
[2017-05-29] MEDS: Cefepime 2 GM, Syringe 2.5 ML in Sterile Water 10 ML SLOW IVP SCH ×2 (02:00→16:34)
[2017-05-29 02:29] LABS: Vancomycin, Trough 22.3 ug/mL
[2017-05-29] MEDS: Vancomycin HCl 1 GM in Premix Bag 1 BAG IVPB SCH (02:49)
[2017-05-29 08:46] VITALS: BP 128/62; TEMP 98.2
[2017-05-29] MEDS ORDERED: Vancomycin HCl 1.5 GM in Sodium Chloride 0.9% 250 ML 300 ML IVPB SCH (09:00)
[2017-05-29] MEDS: Dronedarone HCl 400 MG TAB PO SCH ×2 (11:47→14:12)
[2017-05-29] MEDS: Potassium Chloride 20 MEQ TAB PO SCH (11:47)
[2017-05-29] MEDS: Allopurinol 100 MG TAB PO SCH (11:48)
[2017-05-29] MEDS: Apixaban 5 MG TAB PO SCH ×2 (11:48→14:09)
[2017-05-29] MEDS: Famotidine 20 MG TAB PO SCH (11:48)
[2017-05-29] MEDS: Folic Acid 1 MG TAB PO SCH (11:49)
== END 2017-05-29 17:27 | DRG 273 ==
LOC: ERS 07:19 → 2NO 13:05 → T4-A 05-26 18:23
PROVIDERS: ADMIT Emergency Medicine; ATTEND Emergency Medicine
PROC: 02583ZZ Destruction of Conduction Mechanism, Percutaneous Approach (ICD-10-PCS; principal; 2017-05-25)
PROC: 02K83ZZ Map Conduction Mechanism, Percutaneous Approach (ICD-10-PCS; 2017-05-25)
PROC: 4A023FZ Measurement of Cardiac Rhythm, Percutaneous Approach (ICD-10-PCS; 2017-05-25)
PROC: 4A0234Z Measurement of Cardiac Electrical Activity, Percutaneous Approach (ICD-10-PCS; 2017-05-25)
DX: I48.92 Unspecified atrial flutter (principal); J18.9 Pneumonia, unspecified organism; G93.40 Encephalopathy, unspecified; F03.91 Unspecified dementia, unspecified severity, with behavioral disturbance; I48.91 Unspecified atrial fibrillation; E87.6 Hypokalemia; I10 Essential (primary) hypertension; R26.9 Unspecified abnormalities of gait and mobility; R00.0 Tachycardia, unspecified; Z88.5 Allergy status to narcotic agent; Z66 Do not resuscitate; Z88.6 Allergy status to analgesic agent; Z88.4 Allergy status to anesthetic agent; Z51.5 Encounter for palliative care; Z91.09 Other allergy status, other than to drugs and biological substances; Z82.3 Family history of stroke; Z82.49 Family history of ischemic heart disease and other diseases of the circulatory system; Y95 Nosocomial condition
CPT/HCPCS: 36415; 70450; 71010; 71045; 76942; 80048; 80053; 80202; 82550; 82553; 83690; 84443; 84484; 85025; 87040; 90471; 90682; 92960; 93005; 93306; 93312; 93613; 93623; 93653; 96374; 96375; 96376; A4216; C1730; C1731; C1769; G0008; G8978-GP-CM; G8979-GP-CK; G8987-GO-CM; G8988-GO-CK; G8996-GN-CJ; G8997-GN-CJ; J0692; J1265; J1630; J1644; J2704; J3370; J7050; Q2036